=== PATIENT | male | born 1960 | race Caucasian/White ===

== ENCOUNTER 2023-01-02 06:52 | Inpatient (IN) | payer OTHER, MEDICAID ==
[2022-12-27 11:48] LABS: Basophils # (auto) 0.1 10 ^3/uL (0-0.2); Basophils % (auto) 0.8 % (0.0-2.0); Eosinophils # (auto) 0.3 10 ^3/uL (0-0.8); Eosinophils % (auto) 3.2 % (0.0-7.0); Hematocrit 48.7 % (41.0-53.0); Hemoglobin 16.6 g/dL (13.5-17.5); Lymphocytes # (auto) 2.1 10 ^3/uL (0.4-5.4); Lymphocytes % (auto) 24.1 % (10.0-50.0); Mean Corpuscular Hemoglobin 33.3 pg (28.0-32.0); Mean Corpuscular Hgb Conc. 34.1 g/dL (32.0-36.0); Mean Corpuscular Volume 97.9 fL (80.0-100.0); Monocytes # (auto) 0.6 10 ^3/uL (0-1.3); Monocytes % (auto) 6.7 % (0.0-12.0); Neutrophils # (auto) 5.7 10 ^3/uL (1.6-8.6); Neutrophils % (auto) 65.2 % (37.0-80.0); Nucleated Red Blood Cells % 0.1 %; Red Blood Cells 4.97 10^6/uL (4.5-5.90); Red Cell Distribution Width 14.1 % (11.8-14.3); White Blood Cell 8.7 10^3/uL (4.4-10.8)
[2022-12-27 12:05] LABS: Urine Bacteria NONE SEEN /hpf (None Seen); Urine Blood Negative /uL (Negative); Urine Hyaline Cast FEW /lpf (0 - 2); Urine Mucus FEW (None Seen); Urine Specific Gravity 1.017 (1.001-1.035); Urine WBC 1 /hpf (0 - 3)
[2022-12-27 12:11] LABS: INR 1.04 (0.9-1.15); Partial Thromboplastin Time 31.9 SEC (24.5-34.5)
[2022-12-27 12:32] LABS: Potassium 4.3 mmol/L (3.5-5.1)
[2022-12-27 12:44] LABS: Albumin 3.9 g/dL (3.4-5.0); BUN/Creatinine Ratio 13.5 (10.0-20.0); Bilirubin, Total 0.7 mg/dL (0.2-1.0); Calcium 8.9 mg/dL (8.5-10.1); Total Protein 7.6 g/dL (6.4-8.2)
[~2023-01-02] VITALS: Ht 190.5 cm; Wt 104.4 kg
[~2023-01-02 06:52] MED LIST: ALIR75IN2 SC; ASPI1TAB20 PO; ATOR-47 PO; BACL20TA PO; CHOL20004 PO; FURO20TA3 PO; HYDR-4798 PO; METO25TA36 PO
[2023-01-02] MEDS ORDERED: DexAMETHasone SOD PHOS 4 MG/1ML SDV INJ ONE (06:55)
[2023-01-02] MEDS ORDERED: BUPIVACAINE W/ EPINEPH 0.5% INJ 50ML MDV IJ ONE (06:55)
[2023-01-02] MEDS ORDERED: TRANEXAMIC ACID 20 ML ONE (06:59)
[2023-01-02] MEDS ORDERED: CELECOXIB 100 MG CAP PO ONE (07:00)
[2023-01-02] MEDS ORDERED: ACETAMINOPHEN IV 1000 MG/100ML (10MG/ML) IV ONE ×2 (07:00→10:30)
[2023-01-02] MEDS ORDERED: GABAPENTIN 400 MG CAP PO ONE (07:00)
[2023-01-02] MEDS ORDERED: VANCOMYCIN HCL 1000 MG VL ONE ×2 (07:26→10:00)
[2023-01-02] MEDS ORDERED: ceFAZolin 1GM/50ML 100 ML IV ONE (07:27)
[2023-01-02] MEDS ORDERED: ONDANSETRON HCL 4 MG/2 ML VIAL ONE (07:40)
[2023-01-02] MEDS ORDERED: LIDOCAINE 2% (LOCAL ANESTH.) PF 5ml SDV ONE (07:40)
[2023-01-02] MEDS ORDERED: KETOROLAC TROMETH 30 MG/ML 1ML VIAL ONE (07:40)
[2023-01-02] MEDS ORDERED: GLYCOPYRROLATE 0.2 MG/ML 1ML VIAL ONE (07:40)
[2023-01-02] MEDS ORDERED: ROCURONIUM 10MG/ML 10ML VIAL IV ONE ×2 (07:40→10:52)
[2023-01-02] MEDS ORDERED: PROPOFOL 10 MG/ML 20 ML IV ONE (07:40)
[2023-01-02] MEDS ORDERED: LIDOCAINE 1% (LOCAL ANESTH.) PF 5ml SDV ONE (07:40)
[2023-01-02] MEDS ORDERED: DexAMETHasone SOD PHOS 10MG/1ML VIAL INJ ONE (07:40)
[2023-01-02] MEDS ORDERED: fentaNYL CITRATE 100 MCG/2 ML VL ONE (07:48)
[2023-01-02] MEDS ORDERED: SUGAMMADEX 200mg/2ml Vial (100MG/ML) IV ONE (07:48)
[2023-01-02] MEDS ORDERED: MORPHINE SULFATE INJ 2 MG/ml SYRG IV PRN (08:30)
[2023-01-02] MEDS ORDERED: ONDANSETRON HCL 4 MG/2 ML VIAL IV PRN ×2 (08:30→13:00)
[2023-01-02] MEDS ORDERED: LACTATED RINGER'S 1,000 ML IV SCH (08:30)
[2023-01-02] MEDS ORDERED: HYDROcodone-ACET 10/325MG TAB PO PRN (08:30)
[2023-01-02] MEDS ORDERED: NITROGLYCERIN 0.4 MG SL TAB SL PRN (08:30)
[2023-01-02] MEDS ORDERED: ACETAMINOPHEN 325 MG TAB PO PRN (08:30)
[2023-01-02] MEDS ORDERED: SODIUM CHLORIDE LOCK 10 ML ONE ×2 (09:11→09:13)
[2023-01-02] MEDS ORDERED: ePHEDrine SULFATE 50 MG/ML AMP ONE ×2 (09:13→10:01)
[2023-01-02] MEDS ORDERED: ESMOLOL HCL 10 ML IV ONE (10:38)
[2023-01-02] MEDS ORDERED: VANCOMYCIN HCL 1000 MG VL IV ONE (11:34)
[2023-01-02 12:09] VITALS: O2SAT 96
[2023-01-02] MEDS ORDERED: NALOXONE HCL 0.4 MG/ML VIAL IV PRN (13:00)
[2023-01-02] MEDS ORDERED: HYDROmorphone HCL 2 MG/ML VL/or syr IV PRN (13:00)
[2023-01-02] MEDS ORDERED: FLUMAZENIL 0.1 MG/ML INJ 10ML MDV IV PRN (13:00)
[2023-01-02] MEDS ORDERED: hydrALAZINE HCL 20 MG/ML VL IV PRN (13:00)
[2023-01-02] MEDS ORDERED: oxyCODONE HCL 5MG TAB PO PRN (13:00)
[2023-01-02] MEDS ORDERED: ePHEDrine SULFATE 50 MG/ML AMP IV PRN (13:00)
[2023-01-02] MEDS ORDERED: fentaNYL CITRATE 100 MCG/2 ML VL IV PRN (13:00)
[2023-01-02] MEDS ORDERED: LABETALOL HCL 5 MG/ML 4ML SYRINGE IV PRN (13:00)
[2023-01-02] MEDS: CLINDAMYCIN 600MG IV 50 ML IV SCH ×3 (14:25→23:58)
[2023-01-02] MEDS: DOCUSATE SOD 100 MG CAP PO SCH ×2 (14:25→22:01)
[2023-01-02 14:28] VITALS: BP 98/63; PULSE 60; RESP 12; TEMP 97.3; O2SAT 97
[2023-01-02 14:42] LABS: BUN/Creatinine Ratio 15.2 (10.0-20.0); Calcium 8.1 mg/dL (8.5-10.1); Potassium 4.1 mmol/L (3.5-5.1)
[2023-01-02] MEDS: HYDROmorphone HCL 2 MG/ML VL/or syr IV PRN ×2 (17:18→22:16)
[2023-01-02 22:00] VITALS: BP 101/61; PULSE 84; RESP 16; TEMP 98.3; O2SAT 92
[2023-01-02] MEDS ORDERED: PATIENTS OWN MEDICATION (Metoprolol Succinate (Toprol Xl) 25 MG) PO SCH (22:00)
[2023-01-02] MEDS: METOPROLOL SUCCINATE XL 50 MG TAB PO SCH (22:00)
[2023-01-02] MEDS ORDERED: ATORVASTATIN 20 MG TAB PO SCH (22:00)
[2023-01-03 05:00] VITALS: BP 109/63; PULSE 102; RESP 16; TEMP 98.1; O2SAT 95
[2023-01-03 06:04] LABS: Calcium 8.4 mg/dL (8.5-10.1); Potassium 4.1 mmol/L (3.5-5.1)
[2023-01-03 06:11] LABS: Albumin 3.1 g/dL (3.4-5.0); BUN/Creatinine Ratio 17.5 (10.0-20.0); Bilirubin, Total 0.4 mg/dL (0.2-1.0); Total Protein 6.3 g/dL (6.4-8.2)
[2023-01-03 08:49] VITALS: BP 103/62; PULSE 55; RESP 16; TEMP 97.6; O2SAT 95
[2023-01-03] MEDS: DOCUSATE SOD 100 MG CAP PO SCH (09:19)
[2023-01-03] MEDS: HYDROmorphone HCL 2 MG/ML VL/or syr IV PRN ×2 (09:21→10:34)
[2023-01-03] MEDS: METOPROLOL SUCCINATE XL 50 MG TAB PO SCH (09:22)
[2023-01-03] MEDS ORDERED: PATIENTS OWN MEDICATION (Atorvastatin Calcium 80 MG) PO SCH (10:00)
[2023-01-03] MEDS ORDERED: FUROSEMIDE 20 MG TAB PO SCH (10:00)
[2023-01-03] MEDS ORDERED: ASPirin-EC 81 mg tab PO SCH (10:00)
[2023-01-03 10:35] VITALS: BP 97/57; PULSE 54; RESP 10
== END 2023-01-03 12:45 | disposition home or self-care (01) | DRG 483 ==
LOC: SUR 06:52 → OVERFLOW 08:33 → CENTRAL 14:19
PROVIDERS: ADMIT Orthopaedic Surgery Sports Medicine; ATTEND Orthopaedic Surgery Sports Medicine
PROC: 0RRJ00Z Replacement of Right Shoulder Joint with Reverse Ball and Socket Synthetic Substitute, Open Approach (ICD-10-PCS; principal; 2023-01-02 09:05)
DX: M12.811 Other specific arthropathies, not elsewhere classified, right shoulder (principal); G89.29 Other chronic pain
CPT/HCPCS: 36415; 73020; 73030; 76000; 80048; 80053; 81001; 85025; 85610; 85730; 86850; 86900; 86901; 97110; 97116; 97163; G0378; J0131; J0690; J1100; J1885; J2001; J2405; J2704